=== PATIENT | female | born 1980 | race Two or more races ===

== ENCOUNTER 2019-08-07 21:34 | Emergency (ER) | payer OTHER ==
[~2019-08-07] VITALS: Ht 134.6 cm; Wt 63.5 kg
[~2019-08-07 21:34] MED LIST: AMOX1TAB12 PO; SWIM EAR DRO29.57 ML OT
[2019-08-08] MEDS ORDERED: MECLIZINE HCL25 MG PO ×2 (04:55)
== END 2019-08-08 05:19 | disposition home or self-care (01) ==
LOC: ER 21:34
DX: R42 Dizziness and giddiness (principal)

== ENCOUNTER 2020-12-23 12:10 | Emergency (ER) | payer OTHER ==
[~2020-12-23] VITALS: Ht 152.4 cm; Wt 77.1 kg
[~2020-12-23 12:10] MED LIST changes: +MECLIZINE HCL25 MG PO
== END 2020-12-23 17:04 | disposition home or self-care (01) ==
LOC: ER 12:10
DX: M62.838 Other muscle spasm (principal)

== ENCOUNTER 2024-02-24 13:19 | Emergency (ER) | payer OTHER ==
[~2024-02-24] VITALS: Ht 152.4 cm; Wt 71.7 kg
[2024-02-24 16:30] LABS: MEAN CELL VOLUME 84.1 fL (80.00-100.00); MEAN CORPUSCULAR HEMOGLOBIN 28.7 pg (27.00-32.0); MEAN CORPUSCULAR HGB CONC 34.2 g/dl (32.0-36.0); PLATELET COUNT 268 K/uL (150-450); RED BLOOD COUNT 4.88 M/uL (4.00-6.00); RED CELL DISTRIBUTION WIDTH 13.1 % (11.5-14.5)
[2024-02-24 16:54] LABS: BILIRUBIN TOTAL 0.69 mg/dL (0.3-1.2); BILIRUBIN,CONJUGATED 0.19 mg/dL (0.0-0.2); BILIRUBIN,UNCONJUGATED 0.5 mg/dL (0.0-0.6); TOTAL PROTEIN 8.1 gm/dL (6.4-8.2)
[2024-02-24] MEDS ORDERED: INTESTINEX680 M2 PO (19:04)
[2024-02-24] MEDS ORDERED: ORPHENADRINE CITRATE 30 MG/ML AMPUL IM STA (19:12)
[2024-02-24] MEDS ORDERED: DEXAMETHASONE SODIUM PHOSPHATE 4 MG/ML VIAL IM STA (19:12)
[2024-02-24] MEDS ORDERED: KETOROLAC TROMETHAMINE 30 MG VIAL IM STA (19:13)
[2024-02-24] MEDS ORDERED: KETOROLAC TROMETHAMINE 30 MG VIAL ONE (19:21)
[2024-02-24] MEDS ORDERED: ORPHENADRINE CITRATE 30 MG/ML AMPUL ONE (19:22)
[2024-02-24] MEDS ORDERED: DEXAMETHASONE SODIUM PHOSPHATE 4 MG/ML VIAL ONE (19:22)
== END 2024-02-24 19:43 | disposition home or self-care (01) ==
LOC: ER 13:21
DX: R53.81 Other malaise (principal); K31.9 Disease of stomach and duodenum, unspecified; R10.13 Epigastric pain; Z20.822 Contact with and (suspected) exposure to COVID-19